=== PATIENT | female | born 1950 | race Caucasian/White ===

== ENCOUNTER → 2016-05-14 16:12 | Outpatient (CLI) | payer MEDICARE, OTHER ==
[2015-10-14 13:06] VITALS: BMI 23.0
[~2016-05-14 16:12] MED LIST: ELIQUIS2.5 MG PO; HCTZ25 MG PO; MOBIC7.5 MG PO; NORVASC10 MG PO; PAXIL10 MG PO; PERCOCET 10/3251 TA1 PO; SOMA350 MG PO; TYLENOL W/CODEI1 TAB PO
== END | disposition home or self-care (01) ==
LOC: D.CT 16:12
DX: S09.90XA Unspecified injury of head, initial encounter (principal)

== ENCOUNTER 2016-08-20 08:45 | Outpatient (CLI) | payer MEDICARE, OTHER ==
[2015-10-14 13:06] VITALS: BMI 23.0
== END 2016-08-20 11:22 ==
LOC: D.MAMMO 08:45
DX: Z12.31 Encounter for screening mammogram for malignant neoplasm of breast (principal)

== ENCOUNTER → 2016-09-16 16:09 | Outpatient (CLI) | payer MEDICARE, OTHER ==
[2015-10-14 13:06] VITALS: BMI 23.0
== END | disposition home or self-care (01) ==
LOC: D.MAMMO 14:00
DX: R92.8 Other abnormal and inconclusive findings on diagnostic imaging of breast (principal)

== ENCOUNTER 2017-02-27 20:46 | Emergency (ER) | payer MEDICARE, OTHER ==
[2015-10-14 13:06] VITALS: BMI 23.0
== END 2017-02-27 21:37 | disposition home or self-care (01) ==
LOC: D.ER 20:46
DX: F10.129 Alcohol abuse with intoxication, unspecified (principal); I10 Essential (primary) hypertension

== ENCOUNTER 2019-03-13 11:30 | Outpatient (CLI) | payer MEDICARE, OTHER ==
[2015-10-14 13:06] VITALS: BMI 23.0
== END 2019-03-13 12:00 | disposition home or self-care (01) ==
LOC: D.MAMMO 11:30
PROVIDERS: ATTEND Family Medicine
DX: Z12.31 Encounter for screening mammogram for malignant neoplasm of breast (principal)

== ENCOUNTER 2019-07-31 10:09 | Emergency (ER) | payer MEDICARE, OTHER ==
[~2019-07-31] VITALS: Ht 160 cm; Wt 61.2 kg
[2019-07-31 10:19] VITALS: Ht 160 cm; Wt 61.2 kg
[2019-07-31] MEDS ORDERED: MOBIC7.5 MG PO (10:22)
[2019-07-31 11:03] LABS: CALC OSMOLALITY 267 mosm/kg (275-300); CALCIUM 8.9 mg/dL (8.5-10.1); CARBON DIOXIDE 26.6 mmol/L (21.0-32.0); CHLORIDE - SERUM 97 mmol/L (98-107); CREATININE - SERUM 0.6 mg/dL (0.6-1.3); GLUCOSE 119 mg/dL (74-106); POTASSIUM - SERUM 3.3 mmol/L (3.5-5.1); SODIUM 132 mmol/L (136-145); UREA NITROGEN 17 mg/dL (7-18); eGFR NON AFRICAN AMERICAN > 90 mL/min (90-120)
[2019-07-31 11:08] LABS: ALBUMIN 3.9 g/dL (3.4-5.0); ALKALINE PHOSPHATASE 61 U/L (30-120); ALT (SGPT) 26 U/L (10-68); BILIRUBIN - TOTAL 0.46 mg/dL (0.2-1.3); PROTEIN - SERUM 7.2 g/dL (6.4-8.2)
[2019-07-31 11:16] LABS: BASOPHILS 0.3 % (0-2); EOSINOPHILS 1.3 % (0-7); HEMATOCRIT 38.2 % (36.0-48.0); HEMOGLOBIN 12.5 g/dL (12-16); IMMATURE GRANULOCYTES 0.4 % (0-5); LYMPHOCYTES 19.8 % (15-50); MCH 30.6 pg (26.0-34.0); MCHC 32.7 g/dL (31.0-37.0); MCV 93.4 fL (80.0-100.0); MEAN PLATELET VOLUME 9.9 fL (7.4-10.4); MONOCYTES 7.1 % (2-11); NEUTROPHILS 71.1 % (40-80); RBC 4.09 10x6/uL (4.00-5.40); WBC 9.7 10x3/uL (4.8-10.8)
[2019-07-31 11:23] LABS: PLATELET COUNT 313 10x3/uL (130-400)
[2019-07-31] MEDS ORDERED: HYDROCODON-ACE1 EAC7 PO (11:27)
[2019-07-31 13:24] VITALS: BP 138/78
== END 2019-07-31 13:25 | disposition home or self-care (01) ==
LOC: D.ER 10:09
PROVIDERS: Family Medicine
DX: M25.551 Pain in right hip (principal); S70.01XA Contusion of right hip, initial encounter; W01.0XXA Fall on same level from slipping, tripping and stumbling without subsequent striking against object, initial encounter; Y93.K1 Activity, walking an animal; Y92.9 Unspecified place or not applicable; I10 Essential (primary) hypertension; Z96.641 Presence of right artificial hip joint